=== PATIENT | male | born 1995 | race African-American/Black ===

== ENCOUNTER 2021-09-04 00:08 | Emergency (ER) | payer OTHER ==
[2021-09-04 01:16] VITALS: BP 129/87; PULSE 100; TEMP 98.4; BMI 32.1
[2021-09-04] MEDS ORDERED: ACETAMINOPHEN 325 MG TABLET (FP) PO ONE (04:05)
[2021-09-04] MEDS ORDERED: ACETAMINOPHEN 325 MG TABLET (FP) ONE (04:08)
[2021-09-04] MEDS ORDERED: KETOROLAC TROMETHAMINE 30 MG/1 ML VIAL IM ONE (04:21)
[2021-09-04] MEDS ORDERED: KETOROLAC TROMETHAMINE 15 MG/ML VIAL ONE (04:25)
== END 2021-09-04 04:32 | disposition home or self-care (01) ==
LOC: JER 00:08
PROC: 3E023GC Introduction of Other Therapeutic Substance into Muscle, Percutaneous Approach (ICD-10-PCS; principal; 2021-09-04)
DX: R07.89 Other chest pain (principal); R05.1 Acute cough
CPT/HCPCS: 0241U-QW; 71046-TC-FY; 93005; 93010; 99285-25

== ENCOUNTER 2024-12-07 21:43 | Emergency (ER) | payer OTHER ==
[2024-12-07 21:51] VITALS: BP 113/81; PULSE 83; RESP 16; TEMP 99; BMI 32.4
[2024-12-07 23:46] LABS: HCV DIAGNOSTIC IN-HOUSE W/RFLX NON-REACTIVE (NONREACTIVE)
[2024-12-08 00:48] LABS: HIV INTERPRETATION PRESUMPTIVE POSITIVE (NEGATIVE)
== END 2024-12-07 22:39 | disposition home or self-care (01) ==
LOC: JERFT 21:43 → JER 21:43 → JERFT 22:39
DX: L02.222 Furuncle of back [any part, except buttock and flank] (principal)
CPT/HCPCS: 36415; 86803; 87389; 99283-25